=== PATIENT | female | born 1945 | race Caucasian/White ===

== ENCOUNTER 2016-10-23 12:58 | Inpatient (IN) | payer OTHER, BC ==
[~2016-10-23] VITALS: Ht 160 cm; Wt 60.0 kg
[2016-10-23 13:44] VITALS: BP 134/68
[2016-10-23] MEDS ORDERED: NORVASC5 MG PO (13:46)
[2016-10-23] MEDS ORDERED: SIMVASTATIN20 MG PO (13:47)
[2016-10-23] MEDS ORDERED: MULTI VITAMIN1 EACH PO (13:49)
[2016-10-23 19:40] VITALS: BP 122/55
[2016-10-23 23:07] VITALS: BP 117/52
[2016-10-24 03:25] VITALS: BP 133/61
[2016-10-24 06:55] LABS: EOSINOPHIL (%) 0 % (0-5); HEMATOCRIT 36.9 % (36.0-46.0); IMMATURE GRANULOCYTE (%) 0.5 % (0.0-0.7); IMMATURE GRANULOCYTE COUNT 0.1 K/uL; INSTRUMENT ABS NEUTROPHIL CT 14.2 K/uL; LYMPHOCYTE COUNT 1.3 K/uL (1.0-2.8); MCH 29.6 PG (29.0-34.0); MCHC 34.1 G/DL (30.0-36.0); MCV 86.8 FL (83-99); MEAN PLAT.VOLUME 11.6 uM^3 (9.5-12.4); MONOCYTE (%) 6.8 % (3-12); MONOCYTE COUNT 1.1 K/uL (0-0.8); NEUTROPHIL (%) 84.7 % (45-76); NEUTROPHIL COUNT 14.2 K/uL (1.8-6.4); PLATELET COUNT 206 K/uL (156-360); RBC DIS.WIDTH-SD 38.3 % (39-53); RED BLOOD COUNT 4.25 M/uL (3.80-5.20); WHITE BLOOD COUNT 16.8 K/uL (4.1-10.2)
[2016-10-24 07:13] VITALS: BP 118/56
[2016-10-24 07:17] LABS: ALKALINE PHOSPHATASE 63 IU/L (3-129); ANION GAP 11 MEQ/L (2-14); CHLORIDE 105 MEQ/L (99-109); GFR ESTIMATE (CALCULATED) > 59 mL/min/; GLUCOSE 106 mg/dL (70-99); MAGNESIUM 1.6 mg/dl (1.3-2.7); POTASSIUM 3.2 MEQ/L (3.7-5.4); SAMPLE HEMOLYSIS CHECK 0; SAMPLE ICTERIC CHECK 0; SAMPLE LIPEMIA CHECK 0; SODIUM 141 MEQ/L (136-147); TOTAL BILIRUBIN 1.2 MG/DL (0.0-1.0); UREA NITROGEN (BUN) 6 mg/dL (9-23)
[2016-10-24 10:32] LABS: EOSINOPHIL (%) 0 % (0-5); HEMATOCRIT 37.1 % (36.0-46.0); IMMATURE GRANULOCYTE (%) 0.4 % (0.0-0.7); IMMATURE GRANULOCYTE COUNT 0.1 K/uL; INSTRUMENT ABS NEUTROPHIL CT 16.5 K/uL; LYMPHOCYTE COUNT 0.9 K/uL (1.0-2.8); MCH 29.2 PG (29.0-34.0); MCHC 33.4 G/DL (30.0-36.0); MCV 87.3 FL (83-99); MEAN PLAT.VOLUME 11.5 uM^3 (9.5-12.4); MONOCYTE (%) 7.3 % (3-12); MONOCYTE COUNT 1.4 K/uL (0-0.8); NEUTROPHIL (%) 87.3 % (45-76); NEUTROPHIL COUNT 16.5 K/uL (1.8-6.4); PLATELET COUNT 189 K/uL (156-360); RBC DIS.WIDTH-SD 38.5 % (39-53); RED BLOOD COUNT 4.25 M/uL (3.80-5.20); WHITE BLOOD COUNT 18.9 K/uL (4.1-10.2)
[2016-10-24 11:35] VITALS: BP 117/58
[2016-10-24 11:43] LABS: ALKALINE PHOSPHATASE 63 IU/L (3-129); ANION GAP 13 MEQ/L (2-14); CHLORIDE 106 MEQ/L (99-109); GFR ESTIMATE (CALCULATED) > 59 mL/min/; GLUCOSE 132 mg/dL (70-99); POTASSIUM 3.3 MEQ/L (3.7-5.4); SAMPLE HEMOLYSIS CHECK 0; SAMPLE ICTERIC CHECK 0; SAMPLE LIPEMIA CHECK 0; SODIUM 140 MEQ/L (136-147); TOTAL BILIRUBIN 1.3 MG/DL (0.0-1.0); UREA NITROGEN (BUN) 5 mg/dL (9-23)
[2016-10-24 15:43] VITALS: BP 117/58
[2016-10-24 19:32] VITALS: BP 140/66
[2016-10-24 23:41] VITALS: BP 130/60
[2016-10-25 03:21] VITALS: BP 128/59
[2016-10-25 07:09] LABS: ANION GAP 10 MEQ/L (2-14); CHLORIDE 106 MEQ/L (99-109); GFR ESTIMATE (CALCULATED) > 59 mL/min/; GLUCOSE 102 mg/dL (70-99); POTASSIUM 3.2 MEQ/L (3.7-5.4); SAMPLE HEMOLYSIS CHECK 0; SAMPLE ICTERIC CHECK 0; SAMPLE LIPEMIA CHECK 0; SODIUM 141 MEQ/L (136-147); UREA NITROGEN (BUN) 7 mg/dL (9-23)
[2016-10-25 07:38] LABS: HEMATOCRIT 34.9 % (36.0-46.0); MCH 29.4 PG (29.0-34.0); MCHC 34.1 G/DL (30.0-36.0); MCV 86.2 FL (83-99); MEAN PLAT.VOLUME 11.7 uM^3 (9.5-12.4); PLATELET COUNT 195 K/uL (156-360); RBC DIS.WIDTH-CV 11.9 % (11.8-14.6); RBC DIS.WIDTH-SD 38.1 % (39-53); RED BLOOD COUNT 4.05 M/uL (3.80-5.20)
[2016-10-25 07:47] VITALS: BP 187/84
[2016-10-25 11:24] VITALS: BP 134/60
[2016-10-25 16:23] VITALS: BP 144/67
[2016-10-25 23:41] VITALS: BP 129/61
[2016-10-26 07:25] VITALS: BP 139/63
[2016-10-26 07:42] LABS: HEMATOCRIT 35.2 % (36.0-46.0); MCHC 34.7 G/DL (30.0-36.0); MCV 86.7 FL (83-99); MEAN PLAT.VOLUME 11.6 uM^3 (9.5-12.4); PLATELET COUNT 204 K/uL (156-360); RBC DIS.WIDTH-CV 12.2 % (11.8-14.6); RBC DIS.WIDTH-SD 38.9 % (39-53); RED BLOOD COUNT 4.06 M/uL (3.80-5.20)
[2016-10-26 07:55] LABS: ANION GAP 7 MEQ/L (2-14); CHLORIDE 108 MEQ/L (99-109); GFR ESTIMATE (CALCULATED) > 59 mL/min/; GLUCOSE 126 mg/dL (70-99); POTASSIUM 3.7 MEQ/L (3.7-5.4); SAMPLE HEMOLYSIS CHECK 0; SAMPLE ICTERIC CHECK 0; SAMPLE LIPEMIA CHECK 0; SODIUM 141 MEQ/L (136-147); UREA NITROGEN (BUN) 5 mg/dL (9-23)
[2016-10-26 08:04] LABS: WHITE BLOOD COUNT 7.8 K/uL (4.1-10.2)
[2016-10-26 16:05] VITALS: BP 154/67
[2016-10-26 23:00] VITALS: BP 140/56
[2016-10-27 07:15] VITALS: BP 135/63
[2016-10-27] MEDS ORDERED: CIPRO500 MG PO (12:25)
== END 2016-10-27 14:04 | disposition home or self-care (01) | DRG 921 ==
LOC: 2EAST 12:58
PROVIDERS: Internal Medicine Gastroenterology; Surgery
DX: K91.71 Accidental puncture and laceration of a digestive system organ or structure during a digestive system procedure (principal); K66.8 Other specified disorders of peritoneum; E87.6 Hypokalemia; I10 Essential (primary) hypertension; M19.90 Unspecified osteoarthritis, unspecified site; M47.9 Spondylosis, unspecified; K58.9 Irritable bowel syndrome, unspecified; Z86.010 Personal history of colon polyps
CPT/HCPCS: 80048; 80053; 80069; 83735; 84100; 85025; 85025 91; 85027; 88305; J0696; J0744; J1170; J1644; J7050; J7120; S0030